=== PATIENT | female | born 1975 | race Caucasian/White ===

== ENCOUNTER 2017-02-26 00:15 | Emergency (ER) | payer MEDICAID ==
--- NOTE | 2017-02-26 00:34 | EDM.PDOC ---
ED HPI GENERAL MEDICAL PROBLEM - General Chief Complaint: Neurological Problem Stated Complaint: RIGHT SIDE OF FACE NUMB, POSSIBLE STROKE Time Seen by Provider: 02/26/17 02:10 - History of Present Illness INITIAL COMMENTS - FREE TEXT/NARRATIVE: HISTORY AND PHYSICAL: History of present illness: Patient's 41-year-old female presents with concern of postauricular pain and right-sided facial weakness she knows this earlier tonight she denies any other neurological signs or symptoms or any other concern. Review of systems: As per history of present illness and below otherwise all systems reviewed and negative. Past medical history: As per history of present illness and as reviewed below otherwise noncontributory. Surgical history: As per history of present illness and as reviewed below otherwise noncontributory. Social history: No reported history of drug or alcohol abuse. Family history: As per history of present illness and as reviewed below otherwise noncontributory. Physical exam: HEENT: Atraumatic, normocephalic, pupils reactive, negative for conjunctival pallor or scleral icterus, mucous membranes moist, throat clear, neck supple, nontender, trachea midline. Lungs: Clear to auscultation, breath sounds equal bilaterally, chest nontender. Heart: S1S2, regular, negative for clicks, rubs, or JVD. Abdomen: Soft, nondistended, nontender. Negative for masses or hepatosplenomegaly. Negative for costovertebral tenderness. Pelvis: Stable nontender. Genitourinary: Deferred. Rectal: Deferred. Extremities: Atraumatic, negative for cords or calf pain. Neurovascular unremarkable. Neuro: Awake, alert, oriented. Cranial nerves remarkable for peripheral seventh facial nerve palsy on the right no other neurological findings motor and sensory are otherwise unremarkable throughout Diagnostics: CT brain CBC CMP Therapeutics: None Impression: #1 Acevedo's palsy Definitive disposition and diagnosis as appropriate pending reevaluation and review of above. - Related Data Allergies Allergy/AdvReac Type Severity Reaction Status Date / Time No Known Allergies Allergy Verified 02/26/17 00:25 Home Meds: Home Meds . [No Known Home Meds] 02/26/17 [History] ED ROS GENERAL - Review of Systems Review Of Systems: ROS reveals no pertinent complaints other than HPI. ED EXAM, GENERAL - Physical Exam Exam: See Below (See dictation) Course - Vital Signs Last Recorded V/S: Last Vital Signs Temp 36.3 C 02/26/17 00:15 Pulse 78 02/26/17 01:57 Resp 18 02/26/17 01:57 BP 150/97 H 02/26/17 01:57 Pulse Ox 99 02/26/17 01:57 - Orders/Labs/Meds Orders: Active Orders 24 hr Category Date Time Status EKG Documentation Completion [RC] ROUTINE Care 02/26/17 01:44 Active Head wo Cont [CT] Stat Exams 02/26/17 00:37 Taken Labs: Laboratory Tests 02/26/17 02/26/17 02/26/17 Range/Units 00:30 00:30 00:30 WBC 8.41 (4.0-11.0) K/uL RBC 4.43 (4.30-5.90) M/uL Hgb 13.6 (12.0-16.0) g/dL Hct 38.7 (36.0-46.0) % MCV 87.4 (80.0-98.0) fL MCH 30.7 (27.0-32.0) pg MCHC 35.1 (31.0-37.0) g/dL RDW Std Deviation 39.0 (28.0-62.0) fl RDW Coeff of Buck 13 (11.0-15.0) % Plt Count 266 (150-400) K/uL MPV 10.60 (7.40-12.00) fL Neut % (Auto) 61.6 (48.0-80.0) % Lymph % (Auto) 29.4 (16.0-40.0) % Dougherty % (Auto) 5.9 (0.0-15.0) % Eos % (Auto) 3.0 (0.0-7.0) % Baso % (Auto) 0.1 (0.0-1.5) % Neut # (Auto) 5.2 (1.4-5.7) K/uL Lymph # (Auto) 2.5 H (0.6-2.4) K/uL Dougherty # (Auto) 0.5 (0.0-0.8) K/uL Eos # (Auto) 0.3 (0.0-0.7) K/uL Baso # (Auto) 0.0 (0.0-0.1) K/uL Sodium 134 L (136-146) mmol/L Potassium 4.0 (3.5-5.1) mmol/L Chloride 103 (98-110) mmol/L Carbon Dioxide 21 (21-31) mmol/L BUN 15 (6.0-23.0) mg/dL Creatinine 0.8 (0.6-1.5) mg/dL Est Cr Clr Drug Dosing TNP Estimated GFR (MDRD) > 60.0 ml/min Glucose 129 H (60-110) mg/dL POC Glucose 123 H (60-110) mg/dL Calcium 9.3 (8.8-10.8) mg/dL Total Bilirubin 0.4 (0.1-1.5) mg/dL AST 15 (5-40) IU/L ALT 20 (8-54) IU/L Alkaline Phosphatase 50 (40-150) Total Protein 8.1 H (6.0-8.0) g/dL Albumin 4.0 (3.5-5.0) g/dL Globulin 4.1 H (2.0-3.5) g/dL Albumin/Globulin Ratio 1.0 L (1.3-2.8) Departure - Departure Time of Disposition: 02:10 Disposition: Home, Self-Care 01 Condition: Good Clinical Impression: Acevedo's palsy - Discharge Information Referrals: PCP,None [Primary Care Provider] - Forms: ED Department Discharge Additional Instructions: The following information is given to patients seen in the emergency department who are being discharged to home. This information is to outline your options for follow-up care. We provide all patients seen in our emergency department with a follow-up referral. The need for follow-up, as well as the timing and circumstances, are variable depending upon the specifics of your emergency department visit. If you don't have a primary care physician on staff, we will provide you with a referral. We always advise you to contact your personal physician following an emergency department visit to inform them of the circumstance of the visit and for follow-up with them and/or the need for any referrals to a consulting specialist. The emergency department will also refer you to a specialist when appropriate. This referral assures that you have the opportunity for followup care with a specialist. All of these measure are taken in an effort to provide you with optimal care, which includes your followup. Under all circumstances we always encourage you to contact your private physician who remains a resource for coordinating your care. When calling for followup care, please make the office aware that this follow-up is from your recent emergency room visit. If for any reason you are refused follow-up, please contact the [facility] emergency department at and asked to speak to the emergency department charge nurse. [facility] Special[facility] - Urology [address] [place] [id number] Medrol acyclovir as prescribed eyepatch at night ophthalmic saline drops as discussed follow-up primary medical doctor and neurology as discussed return as needed as discussed - My Orders Last 24 Hours: My Active Orders 02/26/17 00:37 Head wo Cont [CT] Stat 02/26/17 01:44 EKG Documentation Completion [RC] ROUTINE - Assessment/Plan Last 24 Hours: My Active Orders 02/26/17 00:37 Head wo Cont [CT] Stat 02/26/17 01:44 EKG Documentation Completion [RC] ROUTINE
[2017-02-26 01:20] LABS: CHLORIDE,CL 103 mmol/L (98-110)
[2017-02-26 01:21] LABS: SODIUM,NA 134 mmol/L (136-146)
--- NOTE | 2017-02-26 11:22 | CT ---
EXAM DATE: 02/26/17 PATIENT'S AGE: 41 Patient: BELEN RODAS Facility: [place], [place] Site . Site : [id number] Study: CT Head [id number] 12:57:07 AM Ordering Physician: Nato Hughes Final Report: INDICATION: Right-sided facial numbness TECHNIQUE: CT head without contrast. COMPARISON: None FINDINGS: CSF spaces: Within normal limits for age. Brain parenchyma: The fitzpatrick-white differentiation is normal. No sign of mass, hemorrhage, or midline shift. Skull base and calvarium: The visualized paranasal sinuses and mastoid air cells demonstrate no acute or significant findings. The visualized orbits are grossly unremarkable. No skull fractures. IMPRESSION: Unremarkable noncontrast head CT. Dictated by Nestor Locke MD @ 02/26/2017 1:37:13 AM Dictated by: Nestor Locke MD @ 02/26/2017 01:37:17 (Electronic Signature) Report Signed by Proxy. [facility]
== END 2017-02-26 02:25 | disposition home or self-care (01) ==
LOC: MW.ED 00:15
DX: G51.0 Bell's palsy (principal)
CPT/HCPCS: 36415; 70450; 70450-26; 80053; 82962; 85025; 93005; 99282; 99284-25